=== PATIENT | female | born 2000 | race Caucasian/White ===

== ENCOUNTER → 2024-02-08 | Outpatient (CLI) | payer BC, SELFPAY ==
[2024-02-10 20:09] LABS: Chlamydia By Nucleic Acid AMP Negative (Negative); Gonococcus By Nucleic Acid AMP Negative (Negative)
== END | disposition home or self-care (01) ==
LOC: LABSPEC 16:44
PROVIDERS: Referring Provider Advanced Practice Midwife; Visit Provider Advanced Practice Midwife
DX: O99.210 Obesity complicating pregnancy, unspecified trimester (principal); E66.01 Morbid (severe) obesity due to excess calories; Z68.41 Body mass index [BMI] 40.0-44.9, adult; Z3A.00 Weeks of gestation of pregnancy not specified
CPT/HCPCS: 87086; 87491; 87591

== ENCOUNTER → 2024-03-16 | Outpatient (CLI) | payer BC, SELFPAY ==
[2024-03-16 16:59] LABS: Absolute Lymphocyte Count 1.47 X10^3/uL (0.83-4.51); Basophil# 0.02 X10^3/uL; Basophil% 0.2 % (0-1); Eosinophil# 0.08 X10^3/uL; Eosinophils% 0.9 % (0-5); Hematocrit 37.5 % (37-47); Lymphocyte # 1.47 X10^3/ul (0.83-4.51); Lymphocyte % 15.9 % (19-41); Mean Corp Hgb Conc 34.7 g/dL (32-36); Mean Corpuscular Hgb 28.2 pg (27.0-32.0); Mean Corpuscular Volume 81.3 fL (81-99); Mean Platelet Vol. 9.7 fl (6.2-12.0); Monocyte% 6.5 % (0-10); NRBC Flagged by Analyzer 0 % (0-5); Neutrophil # 7.04 X10^3/uL (2.7-7.7); Platelet Count 318 K/mm3 (150-450); RBC Distribution Width SD 38.5 fl (35.1-43.9); Red Blood Count 4.61 M/mm3 (4.2-5.4); White Blood Count 9.3 K/mm3 (4.4-11.0)
[2024-03-16 17:27] LABS: Hemoglobin A1c 4.8 % (3.8-5.6)
[2024-03-16 18:06] LABS: HIV - WCH Non-Reactive (Nonreactive); Hepatitis B Surface Antigen Non-Reactive (Nonreactive); Hepatitis C Antibody Non-Reactive (Nonreactive); Rubella IgG Reactive (Nonreactive); Syphilis Antibodies Non-reactive
== END | disposition home or self-care (01) ==
PROVIDERS: Referring Provider Advanced Practice Midwife; Visit Provider Advanced Practice Midwife
DX: O99.211 Obesity complicating pregnancy, first trimester (principal); E66.01 Morbid (severe) obesity due to excess calories; Z3A.00 Weeks of gestation of pregnancy not specified
CPT/HCPCS: 36415; 83036; 85025; 86703; 86762; 86780; 86803; 86850; 86900; 86901; 87340

== ENCOUNTER → 2024-06-30 | Outpatient (CLI) | payer BC, SELFPAY ==
[2024-06-30 12:43] LABS: Absolute Lymphocyte Count 1.07 X10^3/uL (0.83-4.51); Absolute Neutrophil Count 7.7 X10^3/uL (2.0-7.7); Basophil# 0.03 X10^3/uL; Basophil% 0.3 % (0-1); Eosinophil# 0.03 X10^3/uL; Eosinophils% 0.3 % (0-5); Hematocrit 38.8 % (37-47); Hemoglobin 13.4 g/dL (12.0-15.0); Lymphocyte # 1.07 X10^3/ul (0.83-4.51); Lymphocyte % 11.4 % (19-41); Mean Corp Hgb Conc 34.5 g/dL (32-36); Mean Corpuscular Hgb 28.7 pg (27.0-32.0); Mean Corpuscular Volume 83.1 fL (81-99); Monocyte% 5.3 % (0-10); NRBC Flagged by Analyzer 0 % (0-5); Neutrophil # 7.71 X10^3/uL (2.7-7.7); Neutrophil % 81.9 % (47-70); Platelet Count 300 K/mm3 (150-450); RBC Distribution Width CV 12.8 % (11.6-14.6); RBC Distribution Width SD 38.5 fl (35.1-43.9); Red Blood Count 4.67 M/mm3 (4.2-5.4); White Blood Count 9.4 K/mm3 (4.4-11.0)
[2024-06-30 13:05] LABS: Glucose Challenge Gest 1H 50g 113 mg/dL (70-140)
[2024-06-30 14:06] LABS: HIV - WCH Non-Reactive (Nonreactive); Syphilis Antibodies Non-reactive
== END | disposition home or self-care (01) ==
PROVIDERS: Referring Provider Obstetrics & Gynecology; Visit Provider Obstetrics & Gynecology
DX: O09.90 Supervision of high risk pregnancy, unspecified, unspecified trimester (principal); Z13.1 Encounter for screening for diabetes mellitus; Z3A.00 Weeks of gestation of pregnancy not specified
CPT/HCPCS: 36415; 82950; 85025; 86703; 86780

== ENCOUNTER 2024-08-17 14:28 | Emergency (ER) | payer BC, SELFPAY ==
[2024-08-17 14:29] VITALS: BP 136/75; PULSE 91; RESP 18; TEMP 36.8; O2SAT 99; BMI 41.9
[2024-08-17 17:07] VITALS: O2SAT 100
[2024-08-17 17:32] VITALS: O2SAT 97
--- NOTE | 2024-08-17 17:40 | RAD_ITS ---
STUDY: X-RAY CHEST REASON FOR EXAM: Female, 24 years old. Cough TECHNIQUE: PA and lateral views of the chest. COMPARISON: None. FINDINGS: The lungs are clear and expanded. There is no demonstrated pleural abnormality. Normal size heart. Normal mediastinum and donaldo. Normal visualized pulmonary arteries. Normal visualized aortic arch and descending thoracic aorta. Normal visualized thoracic spine. Normal visualized ribs, clavicles, and shoulders. There is no demonstrated abnormality of the visualized soft tissue structures of the upper abdomen. RAD/Chest PA and Lateral IMPRESSION: Normal x-ray examination of the chest. Electronically Signed: Sanjay Kitchen MD at 18:40 EST ,
--- NOTE | 2024-08-17 17:45 | EX.ED.DYSGE1 ---
HPI <DACIA Baer - Last Filed: 08/17/24 20:00> History of Present Illness Chief Complaint: Cough Narrative Narrative: Patient presenting today with cold symptoms she has had since Wednesday. She reports that she has had nasal congestion, productive cough, and a sore throat that is now resolved. Her has been sick with similar symptoms. She did go to the urgent care earlier this week and was given a Z-Mundo which has provided minimal relief of her symptoms. She reports that her cough worsened and she returned to the urgent care today, her heart rate there was around 140 bpm and they recommended that she come to the emergency department to have a chest x-ray obtained to rule out pneumonia. She denies feeling short of breath. She has had no fevers, chills, or chest pain. She does report bilateral lower rib pain with coughing, she does not have any pain at rest. She is currently 35 weeks and denies any complications. [facility] <DACIA Baer - Last Filed: 08/17/24 20:00> [facility] Medical History PCOS (polycystic ovarian syndrome) Home Medications ?Medication ?Instructions ?Recorded ?Last Taken ?Type cholecalciferol (vitamin D3) 25 25 mcg PO DAILY 02/04/24 Unknown History mcg (1,000 unit) capsule multivitamin no.47-iron fum 27 cap PO 02/04/24 Unknown History mg-folate no.1 1 mg-dha 300 mg capsule (PNV-DHA) ondansetron 4 mg disintegrating 4 mg PO Q8H PRN nausea and 06/30/24 Unknown Rx tablet vomiting #30 tabs Allergy/AdvReac Type Severity Reaction Status Date / Time No Known Allergies Allergy Verified 08/17/24 14:29 Family History Grandfather Heart disease maternal- pacemaker Surgical History [place] teeth extracted Social History adopted: No household members: spouse and other details: [id number] current occupational status: employed current occupation: [employer] current occupational exposures/hazards: No pets and animals: No history of recent travel: No sexually active: Yes Smoking Status: Former smoker quit date: 10/23/23 Tobacco: How many years used: 3 Electronic Cigarette Use: with nicotine alcohol intake: never substance use type: does not use well-balanced diet: daily or most days caffeine: No eating out: 1-3 times/week during the past year weight has: remained stable what type of physical activity do you participate in: none faustino/amish: None seatbelt use: always do you feel safe at home: Yes 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 <DACIA Baer - Last Filed: 08/17/24 20:00> ROS ED Constitutional Constitutional ED: Denies chills or fever(s) ENT ENT ED: Reports nasal congestion Cardiovascular Cardiovascular: Denies chest pain Respiratory/Chest Respiratory/Chest: Reports cough; Denies dyspnea, tachypnea or wheezing Gastrointestinal Gastrointestinal: Denies abdominal pain, nausea or vomiting Musculoskeletal Musculoskeletal: Denies arthralgias or myalgias Integumentary Denies rash Neurologic Neurologic: Denies weakness EXAM <DACIA Baer - Last Filed: 08/17/24 20:00> Physical Exam Const Vital Signs: 08/17/24 14:29 08/17/24 17:07 08/17/24 18:29 Temperature 98.2 F Temperature Source Oral Pulse Rate 91 103 H Respiratory Rate 18 16 Respiratory Effort Normal Respiratory Depth Normal Respiratory Pattern Normal Blood Pressure 136/75 H 130/78 H Blood Pressure Mean 95 95 Pulse Ox 99 99 Oxygen Delivery Method Room Air Room Air Room Air 08/17/24 19:08 Temperature 97.8 F Temperature Source Pulse Rate 85 Respiratory Rate 18 Respiratory Effort Respiratory Depth Respiratory Pattern Blood Pressure 128/74 H Blood Pressure Mean 92 Pulse Ox 99 Oxygen Delivery Method Positive well nourished, well developed and no apparent distress General Appearance ED: well developed HEENT Reports normocephalic and head/scalp atraumatic Mouth ED: Yes moist mucous membranes normal Throat: posterior oropharynx normal, tonsils normal and uvula midline Eyes PERRL and EOMs intact bilaterally Neck full ROM and supple General: Negative for meningeal signs Chest Wall inspection of chest normal Chest Narrative: Pain palpation to the bilateral lower anterior and lateral ribs Resp normal respiratory effort and clear to auscultation bilaterally Cardio regular rate and regular rhythm GI soft to palpation, non-tender, non-distended and no masses Back/Spine normal ROM and normal to inspection Extremity normal to inspection and full ROM Neuro oriented x3, CN's II-XII intact bilaterally, moves all extremities, no focal motor deficits and no sensory deficits noted Sensorium / Orientation: awake and alert Psych mental status grossly normal and thought process normal Skin no rashes or lesions noted and no wounds <Dr. Pascual Ayala DO - Last Filed: 08/17/24 22:46> Physical Exam Const Vital Signs: 08/17/24 14:29 08/17/24 17:07 08/17/24 18:29 Temperature 98.2 F Temperature Source Oral Pulse Rate 91 103 H Respiratory Rate 18 16 Respiratory Effort Normal Respiratory Depth Normal Respiratory Pattern Normal Blood Pressure 136/75 H 130/78 H Blood Pressure Mean 95 95 Pulse Ox 99 99 Oxygen Delivery Method Room Air Room Air Room Air 08/17/24 19:08 Temperature 97.8 F Temperature Source Pulse Rate 85 Respiratory Rate 18 Respiratory Effort Respiratory Depth Respiratory Pattern Blood Pressure 128/74 H Blood Pressure Mean 92 Pulse Ox 99 Oxygen Delivery Method [facility] <DACIA Baer - Last Filed: 08/17/24 20:00> [facility] Narrative Medical decision making narrative: Patient presenting today with cold symptoms that started on Wednesday. She has had nasal congestion and a cough. She did have a sore throat that is now resolved. She has been taking azithromycin over the last several days after being prescribed this at the urgent care earlier this week. She was tested for COVID and strep throat there which came back negative. She returned to today due to worsening cough and was recommended to come here to evaluate for pneumonia. She is nontoxic-appearing and in no acute distress. Her resting pulse is 91 bpm, her O2 saturation is 99% on room air. Chest x-ray negative for any infiltrate or acute cardiopulmonary abnormality. Patient was ambulated and did not become hypoxic, she became mildly tachycardic at 103 bpm but this did quickly resolve. I do suspect that she has a viral illness, especially given her is sick with similar symptoms. heart tones are 136 bpm. Supportive care measures discussed, recommended she follow-up with her PCP. She will be discharged home in stable condition. Radiography X-Ray: Read by ED Physician Diagnostic Testing: Clinical Impression(s) from Imaging Studies Chest X-Ray 08/17/24 17:40 IMPRESSION: Normal x-ray examination of the chest. Electronically Signed: Sanjay Kitchen MD at 18:40 EST , <Dr. Pascual Ayala, DO - Last Filed: 08/17/24 22:46> [facility] Narrative Medical decision making narrative: Patient presenting today with cold symptoms that started on Wednesday. She has had nasal congestion and a cough. She did have a sore throat that is now resolved. She has been taking azithromycin over the last several days after being prescribed this at the urgent care earlier this week. She was tested for COVID and strep throat there which came back negative. She returned to today due to worsening cough and was recommended to come here to evaluate for pneumonia. She is nontoxic-appearing and in no acute distress. Her resting pulse is 91 bpm, her O2 saturation is 99% on room air. Chest x-ray negative for any infiltrate or acute cardiopulmonary abnormality. Patient was ambulated and did not become hypoxic, she became mildly tachycardic at 103 bpm but this did quickly resolve. I do suspect that she has a viral illness, especially given her is sick with similar symptoms. heart tones are 136 bpm. Supportive care measures discussed, recommended she follow-up with her PCP. She will be discharged home in stable condition. attending note: I have personally performed a face to face assessment of the patient and have reviewed the URSULA note. I personally made/approved the management plan and take responsibility for the patient management. I performed a substantive portion of the visit including all aspects of the following. My lim findings include: Sent from urgent care for evaluation. G1, P1 35 weeks gestation nearly 36. Cough since Wednesday 4 days ago went to urgent care 2 days ago COVID and strep negative she is placed on a Z-Mundo. Will back today due to cough not improving reported heart rate in the 140s that was sent here. She denies any dyspnea. On arrival her heart rate was normal at 90. Exam alert nontoxic lungs clear gravid abdomen nontender. heart tone normal 136. Chest x-ray was negative. Negative COVID and strep 2 days ago. Discussed viral syndrome with the patient. Due to reported tachycardia at urgent care we ambulated the patient pulse ox there is no tachycardia no hypoxia. Discussed adjunct therapies humidifier to vapor rubs to help with cough symptoms. He is on day 3 of her Z-Mundo. Discussed with her she is to finish status however not likely to improve symptoms immediately. Symptoms should improve with time. She is reassured. All questions were answered. Radiography Diagnostic Testing: Clinical Impression(s) from Imaging Studies Chest X-Ray 08/17/24 17:40 IMPRESSION: Normal x-ray examination of the chest. Electronically Signed: Sanjay Kitchen MD at 18:40 EST , Discharge Plan Triage Chief Complaint: Cough ED Midlevel Provider: Earlene Skaggs ED Provider: Pascual Ayala Dx/Rx/DC Orders Clinical Impression: Viral URI with cough Instructions: ED URI, Viral, No Abx (Adult) Prescriptions: No Action PNV-DHA 27 mg iron-1 mg -300 mg capsule PO cholecalciferol (vitamin D3) 25 mcg (1,000 unit) capsule 25 mcg PO DAILY ondansetron 4 mg tablet,disintegrating 4 mg PO Q8H PRN (Reason: nausea and vomiting) Qty: 30 3RF Primary Care Provider: WEN DYKES DO Referrals: WEN DYKES DO [Other] Activity Restrictions/Additional Instructions: Follow-up with your PCP, return for worsening symptoms. Print Language: Chinese Disposition Disposition: Home, Self Care Discharge Date/Time: 08/17/24 19:10
[2024-08-17 18:29] VITALS: BP 130/78; PULSE 103; RESP 16; O2SAT 99
[2024-08-17 19:08] VITALS: BP 128/74; PULSE 85; RESP 18; TEMP 36.6; O2SAT 99
== END 2024-08-17 19:10 | disposition home or self-care (01) ==
PROVIDERS: Emergency Provider Emergency Medicine; Visit Provider Emergency Medicine
DX: O99.513 Diseases of the respiratory system complicating pregnancy, third trimester (principal); J06.9 Acute upper respiratory infection, unspecified; Z11.52 Encounter for screening for COVID-19; Z3A.35 35 weeks gestation of pregnancy; Z87.891 Personal history of nicotine dependence
CPT/HCPCS: 71046; 99282

== ENCOUNTER → 2024-08-18 | Outpatient (CLI) | payer BC, SELFPAY ==
--- NOTE | 2024-08-18 08:45 | US_ITS ---
STUDY: SECOND AND THIRD TRIMESTER OBSTETRICAL ULTRASOUND - LIMITED REASON FOR EXAM: Female, 24 years old. growth US PRIOR ULTRASOUND: None. TECHNIQUE: Transabdominal TECHNICAL QUALITY: Adequate. FINDINGS: There is a single intrauterine fetus. The fetus is in a cephalic presentation. There is demonstrated cardiac activity with a heart rate of 146 bpm. There is a normal amniotic fluid volume. The largest amniotic fluid pocket measures 6.1 cm. The amniotic fluid index (JAEL) is 10.8 cm. The placenta is posterior in location and is not low lying. There are Grade 2 placental changes. The cervix is obscured by overlying bowel gas and cannot be identified. . BIOMETRY: BPD: 96 mm: 39 weeks, 1 days HC: 337 mm: 38 weeks, 5 days AC: 316 mm: 35 weeks, 4 days FL: 65 mm: 33 weeks, 2 days CI: NA FL/AC: 20.4 FL/BPD: 67 HC/AC: 1.07 age by current US: 37 weeks, 1 days. NATALIA by current US: 1.16.25. Estimated weight: 2726 grams, +/- 409 grams, 44 %. Age by LMP: 35 weeks, 6 days. NATALIA by LMP: 1.25.25 US/OB Limited With Biometrics IMPRESSION: There is a single live intrauterine with a heart rate of 146 bpm. Electronically Signed: Marcos Watson MD at 20:16 EST ,
== END | disposition home or self-care (01) ==
LOC: US 08:44
PROVIDERS: Referring Provider Advanced Practice Midwife; Visit Provider Advanced Practice Midwife
DX: O99.213 Obesity complicating pregnancy, third trimester (principal); E66.01 Morbid (severe) obesity due to excess calories; Z3A.37 37 weeks gestation of pregnancy
CPT/HCPCS: 76816

== ENCOUNTER → 2024-08-25 | Outpatient (CLI) | payer BC, SELFPAY | END | disposition home or self-care (01) | LOC: LABSPEC 15:02 | PROVIDERS: Referring Provider Advanced Practice Midwife; Visit Provider Advanced Practice Midwife | DX: O09.90 Supervision of high risk pregnancy, unspecified, unspecified trimester (principal); Z3A.00 Weeks of gestation of pregnancy not specified | CPT/HCPCS: 87081 ==

== ENCOUNTER 2024-09-01 11:59 | Outpatient (CLI) | payer BC, SELFPAY ==
[2024-09-01] VITALS (7 sets, daily range): BP systolic 136–143; BP diastolic 63–78; PULSE 85–103; RESP 16; TEMP 36.4–36.6; O2SAT 97–98; BMI 42.9
--- NOTE | 2024-09-01 12:03 | US_ITS ---
INDICATION: decelerations EXAMINATION: Ultrasound US Biophysical Profile W/O Nonst TECHNIQUE: Transabdominal pelvic ultrasound was performed. COMPARISON: 08/18/2024 LMP: 12/11/2023 Beta-hCG: Unknown. Provided EGA: 37 weeks 6 days FINDINGS: INTRAUTERINE GESTATION(s): Single. HEART MOTION is 137 bpm. AMNIOTIC FLUID INDEX (JAEL): 9.2 cm BIOPHYSICAL PROFILE (BPP): 6/8 -- Breathin/2 -- Movement: 2/2. -- Tone: 2/2. --JAEL: 2/2. PRESENTATION: Cephalic PLACENTA: Anterior. There is no placenta previa or abruption. CERVIX: The cervix is not visualized. US/Biophysical Prof W/O Non Stres IMPRESSION: Single live intrauterine with biophysical profile score 6/8. Electronically Signed: Adelfo Lafleur MD at 16:12 EST ,
--- NOTE | 2024-09-01 17:00 | OB.TRI.HP_ITS ---
HPI - General General Date of Service: 09/01/24 HPI Narrative CAMERON AGUILLON, is a 24 F who presents at 37.6 presenting to for extended monitoring for variable on NST. active fetus. Maternal Data Information NATALIA Calculator Estimated Delivery Date Method Current WG Current Estimate 09/16/24 LMP (Certain) 37w 6d PFSH PFSH Medical History PCOS (polycystic ovarian syndrome) Home Medications ?Medication ?Instructions ?Recorded ?Last Taken ?Type multivitamin no.47-iron fum 27 1 cap PO DAILY 02/04/24 08/31/24 20:00 History mg-folate no.1 1 mg-dha 300 mg capsule (PNV-DHA) ondansetron 4 mg disintegrating 4 mg PO Q8H PRN nausea and 06/30/24 09/01/24 10:45 Rx tablet vomiting #30 tabs Allergy/AdvReac Type Severity Reaction Status Date / Time No Known Allergies Allergy Verified 09/01/24 12:43 Family History Grandfather Heart disease maternal- pacemaker Surgical History [place] teeth extracted Social History adopted: No household members: spouse and other details: [id number] current occupational status: employed current occupation: [employer] current occupational exposures/hazards: No pets and animals: No history of recent travel: No sexually active: Yes Smoking Status: Former smoker quit date: 10/23/23 Tobacco: How many years used: 3 Electronic Cigarette Use: with nicotine alcohol intake: never substance use type: does not use well-balanced diet: daily or most days caffeine: No eating out: 1-3 times/week during the past year weight has: remained stable what type of physical activity do you participate in: none faustino/yarsanism: None seatbelt use: always do you feel safe at home: Yes 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 Elective abortions Hx Para 0 Spontaneous abortions 2 Hx # Term Pregnancies Ectopic pregnancies Hx # Pregnancies Multiple births # of living children 0 Visit Details Expected Delivery Route/Plan Labor Preferences- CB/BF classes: [] labor support person: [] labor intervention preferences: [] pain management options preferred: [] cut cord/dad catch: [] : [] PP control planned: [] discussed possible routes of delivery and associated risks: [] special requests: [] Plans Covid status: [] Flu vaccine: declin Tdap vaccine: given Rhogam:na LARC form signed: declined movement and labor precautions reviewed. Problem list reviewed and updated with the most current plan of care details and appropriate orders placed. Relevant counseling for the gestational age provided. Continue routine care and follow up unless otherwise noted in visit notes/problem list details OB Flowsheet Initial Weight: 253 lb Date -?-?-?-?-?-?-?--?-?-?-?-?- EGA Weight BP Urine Prot -?-?-?-?-?-?-?-?-?-?-?-?- Glucose FHR FuHt Pres Dilation -?-?-?-?-?-?-?-?-?-?-?-?- Effaced St Visit Note 02/08/24 -?-?-?-?-?-?-?-?-?-?-?-?- 8w 3d 253 lb (+0 oz) 121/72 -?-?-?-?-?-?-?-?-?-?-?-?- 175 -?-?-?-?-?-?-?-?-?-?-?-?- KW- CRL cons wit h dates. NIPT with gender at next appt. 03/10/24 -?-?-?-?-?-?-?-?-?-?-?-?- 12w 6d 247 lb 6 oz (-5 lb 10 oz) 122/69 Negative -?-?-?-?-?-?-?-?-?-?-?-?- Negative 140 -?-?-?-?-?-?-?-?-?-?-?-?- JV- hand held de vice used to reassure patient. NIPT ordered. JV- hand held device used to reassure patient. NIPT ordered. pt on metformin for PCOS. She thinks she also has had insulin resistance in the past. She has been on this since september so A1c will likely not be accurate to know if has pre- existing DM. she will check glucose levels now and if decides to stop it, will check levels fasting and 2 hr pp. 04/07/24 -?-?-?-?-?-?-?-?-?-?-?-?- 16w 6d 243 lb (-10 lb) 126/84 Negative -?-?-?-?-?-?-?-?-?-?-?-?- Negative 156 -?-?-?-?-?-?-?-?-?-?-?-?- JV- fasting danilo ls in 80's ,2 hr pp 110's. plan to stop metformin the week of her glucola and if normal glucola, stop metformin. JV- no lof, vaginal bleeding, or dec fm. nst reactive. GBS collected. JV- glucose log is normal. p t will stop metformin and do glucola at 26-28 weeks. 05/05/24 -?-?-?-?-?-?-?-?-?-?-?-?- 20w 6d 243 lb (-10 lb) 113/76 Negative -?-?-?-?-?-?-?-?-?-?-?-?- Negative 150 -?-?-?-?-?-?-?-?-?-?-?-?- SM- no vb lof go o dfm nor euglar ctx 06/02/24 -?-?-?-?-?-?-?-?-?-?-?-?- 24w 6d 243 lb 2 oz (-9 lb 14 oz) 133/83 Negative -?-?-?-?-?-?-?-?-?-?-?-?- Negative 145 25 -?-?-?-?-?-?-?-?-?-?-?-?- KW- no vb/lof/ct x. good fm. LARC discussed and unsure. BS reviewed and WNL 06/30/24 -?-?-?-?-?-?-?-?-?-?-?-?- 28w 6d 243 lb 8 oz (-9 lb 8 oz) 132/80 Negative -?-?-?-?-?-?-?-?-?-?-?-?- Negative 138 30 -?-?-?-?-?-?-?-?-?-?-?-?- JV- tdap done to day. no lof, vaginal bleeding, or dec fm. has nausea again and asking for zofran refill. 3rd tri labs today 07/14/24 -?-?-?-?-?-?-?-?-?-?-?-?- 30w 6d 246 lb 8 oz (-6 lb 8 oz) 124/78 Negative -?-?-?-?-?-?-?-?-?-?-?-?- Negative 157 31 -?-?-?-?-?-?-?-?-?-?-?-?- LC- no vb/ctx/lo f. good fm. no concerns 07/28/24 -?-?-?-?-?-?-?-?-?-?-?-?- 32w 6d 250 lb (-3 lb) 131/82 -?-?-?-?-?-?-?-?-?-?-?-?- 145 33 -?-?-?-?-?-?-?-?-?-?-?-?- KW- no vb/lof/ct x. good fm. Growth US ordered-scheduled for NSTs at 34 weeks. 08/11/24 -?-?-?-?-?-?-?-?-?-?-?-?- 34w 6d 251 lb 2 oz (-1 lb 14 oz) 118/81 Negative -?-?-?-?-?-?-?-?-?-?-?-?- Negative 140 34 -?-?-?-?-?-?-?-?-?-?-?-?- SM- no vb lof go od fm no reuglar ctx 08/18/24 -?-?-?-?-?-?-?-?-?-?-?-?- 35w 6d 252 lb (-16 oz) 136/82 -?-?-?-?-?-?-?-?-?-?-?-?- 130 35 -?-?-?-?-?--?-?-?-?-?-?-?- SM- no vb lof go od fm no reuglar ctx, being treated for a cold 08/25/24 -?-?-?-?-?-?-?-?-?-?-?-?- 36w 6d 256 lb 4 oz (+3 lb 4 oz) 129/78 Negative -?-?-?-?-?-?-?-?-?-?-?-?- Negative 135 37 Cephalic 1 .5 -?-?-?-?-?-?-?-?-?-?-?-?- 70 -2 KW- no vb/ lof/ctx. good fm. NST today. GBS today. 09/01/24 -?-?-?-?-?-?-?-?-?-?-?-?- 37w 6d 259 lb 6 oz (+6 lb 6 oz) 127/73 Negative -?-?-?-?-?-?-?-?-?-?-?-?- Negative 145 Cephalic 1.5 -?-?-?-?-?-?-?-?-?-?-?-?- 70 -2 JV- 2 vari able decels on NST today. sending to L&D for a bpp. NST FHR Rate Baby A Baseline: 140 Variability:: Moderate Accelerations:: 15 x 15 Decelerations:: None NST Reactive:: Yes FHR Category:: Category I Uterine Activity:: none Assessment & Plan (1) Variable deceleration: COMMENT: 01/28 BPP off for breathing. normal JAEL. active fetus. reactive NST. PLAN: Patient presents for triage evaluation secondary to variable in office. reassuring NST and BPP 04/01. FHT: Moderate variability reactive no decelerations category I tracing [place]: Contractions Assessment and plan: Reactive NST, reassuring maternal and status patient discharged to home to follow-up in office. See problem list details for additional plan information. Charges/Coding Procedures Urinary/Genital [id number]: [id number] non-stress test Interp
--- NOTE | 2024-09-01 17:00 | OB.TRI.NOTE ---
HPI - General General Date of Service: 09/01/24 HPI Narrative CAMERON AGUILLON, is a 24 F who presents at 37.6 presenting to for extended monitoring for variable on NST. active fetus. Maternal Data Information NATALIA Calculator Estimated Delivery Date Method Current WG Current Estimate 09/16/24 LMP (Certain) 37w 6d PFSH PFSH Medical History PCOS (polycystic ovarian syndrome) Home Medications ?Medication ?Instructions ?Recorded ?Last Taken ?Type multivitamin no.47-iron fum 27 1 cap PO DAILY 02/04/24 08/31/24 20:00 History mg-folate no.1 1 mg-dha 300 mg capsule (PNV-DHA) ondansetron 4 mg disintegrating 4 mg PO Q8H PRN nausea and 06/30/24 09/01/24 10:45 Rx tablet vomiting #30 tabs Allergy/AdvReac Type Severity Reaction Status Date / Time No Known Allergies Allergy Verified 09/01/24 12:43 Family History Grandfather Heart disease maternal- pacemaker Surgical History [place] teeth extracted Social History adopted: No household members: spouse and other details: [id number] current occupational status: employed current occupation: [employer] current occupational exposures/hazards: No pets and animals: No history of recent travel: No sexually active: Yes Smoking Status: Former smoker quit date: 10/23/23 Tobacco: How many years used: 3 Electronic Cigarette Use: with nicotine alcohol intake: never substance use type: does not use well-balanced diet: daily or most days caffeine: No eating out: 1-3 times/week during the past year weight has: remained stable what type of physical activity do you participate in: none faustino/roman catholic: None seatbelt use: always do you feel safe at home: Yes 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 Elective abortions Hx Para 0 Spontaneous abortions 2 Hx # Term Pregnancies Ectopic pregnancies Hx # Pregnancies Multiple births # of living children 0 Visit Details Expected Delivery Route/Plan Labor Preferences- CB/BF classes: [] labor support person: [] labor intervention preferences: [] pain management options preferred: [] cut cord/dad catch: [] : [] PP control planned: [] discussed possible routes of delivery and associated risks: [] special requests: [] Plans Covid status: [] Flu vaccine: declin Tdap vaccine: given Rhogam:na LARC form signed: declined movement and labor precautions reviewed. Problem list reviewed and updated with the most current plan of care details and appropriate orders placed. Relevant counseling for the gestational age provided. Continue routine care and follow up unless otherwise noted in visit notes/problem list details OB Flowsheet Initial Weight: 253 lb Date <del>?</del> EGA Weight BP Urine Prot <del>?</del> Glucose FHR FuHt Pres Dilation <del>?</del> Effaced St Visit Note 02/08/24 <del>?</del> 8w 3d 253 lb (+0 oz) 121/72 <del>?</del> 175 <del>?</del> KW- CRL cons with dates. NIPT with gender at next appt. 03/10/24 <del>?</del> 12w 6d 247 lb 6 oz (-5 lb 10 oz) 122/69 Negative <del>?</del> Negative 140 <del>?</del> JV- hand held device used to reassure patient. NIPT ordered. JV- hand held device used to reassure patient. NIPT ordered. pt on metformin for PCOS. She thinks she also has had insulin resistance in the past. She has been on this since september so A1c will likely not be accurate to know if has pre-existing DM. she will check glucose levels now and if decides to stop it, will check levels fasting and 2 hr pp. 04/07/24 <del>?</del> 16w 6d 243 lb (-10 lb) 126/84 Negative <del>?</del> Negative 156 <del>?</del> JV- fasting levels in 80's ,2 hr pp 110's. plan to stop metformin the week of her glucola and if normal glucola, stop metformin. JV- no lof, vaginal bleeding, or dec fm. nst reactive. GBS collected. JV- glucose log is normal. pt will stop metformin and do glucola at 26-28 weeks. 05/05/24 <del>?</del> 20w 6d 243 lb (-10 lb) 113/76 Negative <del>?</del> Negative 150 <del>?</del> SM- no vb lof goo dfm nor euglar ctx 06/02/24 <del>?</del> 24w 6d 243 lb 2 oz (-9 lb 14 oz) 133/83 Negative <del>?</del> Negative 145 25 <del>?</del> KW- no vb/lof/ctx. good fm. LARC discussed and unsure. BS reviewed and WNL 06/30/24 <del>?</del> 28w 6d 243 lb 8 oz (-9 lb 8 oz) 132/80 Negative <del>?</del> Negative 138 30 <del>?</del> JV- tdap done today. no lof, vaginal bleeding, or dec fm. has nausea again and asking for zofran refill. 3rd tri labs today 07/14/24 <del>?</del> 30w 6d 246 lb 8 oz (-6 lb 8 oz) 124/78 Negative <del>?</del> Negative 157 31 <del>?</del> LC- no vb/ctx/lof. good fm. no concerns 07/28/24 <del>?</del> 32w 6d 250 lb (-3 lb) 131/82 <del>?</del> 145 33 <del>?</del> KW- no vb/lof/ctx. good fm. Growth US ordered-scheduled for NSTs at 34 weeks. 08/11/24 <del>?</del> 34w 6d 251 lb 2 oz (-1 lb 14 oz) 118/81 Negative <del>?</del> Negative 140 34 <del>?</del> SM- no vb lof good fm no reuglar ctx 08/18/24 <del>?</del> 35w 6d 252 lb (-16 oz) 136/82 <del>?</del> 130 35 <del>?</del> SM- no vb lof good fm no reuglar ctx, being treated for a cold 08/25/24 <del>?</del> 36w 6d 256 lb 4 oz (+3 lb 4 oz) 129/78 Negative <del>?</del> Negative 135 37 Cephalic 1.5 <del>?</del> 70 -2 KW- no vb/lof/ctx. good fm. NST today. GBS today. 09/01/24 <del>?</del> 37w 6d 259 lb 6 oz (+6 lb 6 oz) 127/73 Negative <del>?</del> Negative 145 Cephalic 1.5 <del>?</del> 70 -2 JV- 2 variable decels on NST today. sending to L&D for a bpp. NST FHR Rate Baby A Baseline: 140 Variability:: Moderate Accelerations:: 15 x 15 Decelerations:: None NST Reactive:: Yes FHR Category:: Category I Uterine Activity:: none Assessment & Plan (1) Variable deceleration: COMMENT: 01/28 BPP off for breathing. normal JAEL. active fetus. reactive NST. PLAN: Patient presents for triage evaluation secondary to variable in office. reassuring NST and BPP 04/01. FHT: Moderate variability reactive no decelerations category I tracing [place]: Contractions Assessment and plan: Reactive NST, reassuring maternal and status patient discharged to home to follow-up in office. See problem list details for additional plan information. Charges/Coding Procedures Urinary/Genital [id number]: 69701-44 non-stress test Interp
== END 2024-09-01 16:41 | disposition home or self-care (01) ==
LOC: WPOUT 12:02 → WP 12:02
PROVIDERS: Referring Provider Registered Nurse; Visit Provider Registered Nurse
DX: O36.8330 Maternal care for abnormalities of the fetal heart rate or rhythm, third trimester, not applicable or unspecified (principal); Z3A.37 37 weeks gestation of pregnancy; Z87.891 Personal history of nicotine dependence
CPT/HCPCS: 59025; 59050; 76819; 99221; G0378

== ENCOUNTER 2024-09-03 01:25 | Outpatient (CLI) | payer BC, SELFPAY ==
[2024-09-03 01:49] VITALS: PULSE 78; O2SAT 98
[2024-09-03 01:50] VITALS: BP 136/79; PULSE 78; RESP 18; TEMP 36.5
[2024-09-03 01:56] VITALS: BMI 43.7
[2024-09-03 02:30] LABS: ROM Internal Control Test YES-OK TO RESULT pt. (Internal QC); ROM Patient Test Negative (Negative)
[2024-09-03 02:31] LABS: Record Kit Lot#, ROM+ K2451
[2024-09-03 02:42] VITALS: BP 126/68; PULSE 84
--- NOTE | 2024-09-08 12:55 | OB.TRI.HP_ITS ---
HPI - General HPI Narrative CAMERON AGUILLON, is a 24 F who presents at 38.1 with questionable LOF and ctx. good fm. declines vb Maternal Data Information NATALIA Calculator Estimated Delivery Date Method Current WG Current Estimate 09/16/24 LMP (Certain) 38w 6d PFSH PFSH Medical History PCOS (polycystic ovarian syndrome) Home Medications ?Medication ?Instructions ?Recorded ?Last Taken ?Type multivitamin no.47-iron fum 27 1 cap PO DAILY 02/04/24 09/02/24 History mg-folate no.1 1 mg-dha 300 mg capsule (PNV-DHA) ondansetron 4 mg disintegrating 4 mg PO Q8H PRN nausea and 06/30/24 09/02/24 Rx tablet vomiting #30 tabs Allergy/AdvReac Type Severity Reaction Status Date / Time No Known Allergies Allergy Verified 09/03/24 01:57 Family History Grandfather Heart disease maternal- pacemaker Surgical History [place] teeth extracted Social History adopted: No household members: spouse and other details: [id number] current occupational status: employed current occupation: [employer] current occupational exposures/hazards: No pets and animals: No history of recent travel: No sexually active: Yes Smoking Status: Former smoker quit date: 10/23/23 Tobacco: How many years used: 3 Electronic Cigarette Use: with nicotine alcohol intake: never substance use type: does not use well-balanced diet: daily or most days caffeine: No eating out: 1-3 times/week during the past year weight has: remained stable what type of physical activity do you participate in: none faustino/hinduism: None seatbelt use: always do you feel safe at home: Yes 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 History 3 Elective abortions Hx Para 0 Spontaneous abortions 2 Hx # Term Pregnancies Ectopic pregnancies Hx # Pregnancies Multiple births # of living children 0 Visit Details Expected Delivery Route/Plan Labor Preferences- CB/BF classes: [] labor support person: [] labor intervention preferences: [] pain management options preferred: [] cut cord/dad catch: [] : [] PP control planned: [] discussed possible routes of delivery and associated risks: [] special requests: [] Plans Covid status: [] Flu vaccine: declin Tdap vaccine: given Rhogam:na LARC form signed: declined movement and labor precautions reviewed. Problem list reviewed and updated with the most current plan of care details and appropriate orders placed. Relevant counseling for the gestational age provided. Continue routine care and follow up unless otherwise noted in visit notes/problem list details OB Flowsheet Initial Weight: 253 lb Date -?-?-?-?-?-?-?-?-?-?-?-?- EGA Weight BP Urine Prot -?-?-?-?-?-?-?-?-?-?-?-?- Glucose FHR FuHt Pres Dilation -?-?-?-?-?-?-?-?-?-?-?-?- Effaced St Visit Note 02/08/24 -?-?-?-?-?-?-?-?-?-?-?-?- 8w 3d 253 lb (+0 oz) 121/72 -?-?-?-?-?-?-?-?-?-?-?-?- 175 -?-?-?-?-?-?-?-?-?-?-?-?- KW- CRL cons wit h dates. NIPT with gender at next appt. 03/10/24 -?-?-?-?-?-?-?-?-?-?-?-?- 12w 6d 247 lb 6 oz (-5 lb 10 oz) 122/69 Negative -?-?-?-?-?-?-?-?-?-?-?-?- Negative 140 -?-?-?-?-?-?-?-?-?-?-?-?- JV- hand held de vice used to reassure patient. NIPT ordered. JV- hand held device used to reassure patient. NIPT ordered. pt on metformin for PCOS. She thinks she also has had insulin resistance in the past. She has been on this since september so A1c will likely not be accurate to know if has pre- existing DM. she will check glucose levels now and if decides to stop it, will check levels fasting and 2 hr pp. 04/07/24 -?-?-?-?-?-?-?-?-?-?-?-?- 16w 6d 243 lb (-10 lb) 126/84 Negative -?-?-?-?-?-?-?-?-?-?-?-?- Negative 156 -?-?-?-?-?-?-?-?-?-?-?-?- JV- fasting danilo ls in 80's ,2 hr pp 110's. plan to stop metformin the week of her glucola and if normal glucola, stop metformin. JV- no lof, vaginal bleeding, or dec fm. nst reactive. GBS collected. JV- glucose log is normal. p t will stop metformin and do glucola at 26-28 weeks. 05/05/24 -?-?-?-?-?-?-?-?-?-?-?-?- 20w 6d 243 lb (-10 lb) 113/76 Negative -?-?-?-?-?-?-?-?-?-?-?-?- Negative 150 -?-?-?-?-?-?-?-?-?-?-?-?- SM- no vb lof go o dfm nor euglar ctx 06/02/24 -?-?-?-?-?-?-?-?-?-?-?-?- 24w 6d 243 lb 2 oz (-9 lb 14 oz) 133/83 Negative -?-?-?-?-?-?-?-?-?-?-?-?- Negative 145 25 -?-?-?-?-?-?-?-?-?-?-?-?- KW- no vb/lof/ct x. good fm. LARC discussed and unsure. BS reviewed and WNL 06/30/24 -?-?-?-?-?-?-?-?-?-?-?-?- 28w 6d 243 lb 8 oz (-9 lb 8 oz) 132/80 Negative -?-?-?-?-?-?-?-?-?-?-?-?- Negative 138 30 -?-?-?-?-?-?-?-?-?-?-?-?- JV- tdap done to day. no lof, vaginal bleeding, or dec fm. has nausea again and asking for zofran refill. 3rd tri labs today 07/14/24 -?-?-?-?-?-?-?-?-?-?-?-?- 30w 6d 246 lb 8 oz (-6 lb 8 oz) 124/78 Negative -?-?-?-?-?-?-?-?-?-?-?-?- Negative 157 31 -?-?-?-?-?-?-?-?-?-?-?-?- LC- no vb/ctx/lo f. good fm. no concerns 07/28/24 -?-?-?-?-?-?-?-?-?-?-?-?- 32w 6d 250 lb (-3 lb) 131/82 -?-?-?-?-?-?-?-?-?-?-?-?- 145 33 -?-?-?-?-?-?-?-?-?-?-?-?- KW- no vb/lof/ct x. good fm. Growth US ordered-scheduled for NSTs at 34 weeks. 08/11/24 -?-?-?-?-?-?-?-?-?-?-?-?- 34w 6d 251 lb 2 oz (-1 lb 14 oz) 118/81 Negative -?-?-?-?-?-?-?-?-?-?-?-?- Negative 140 34 -?-?-?-?-?-?-?-?-?-?-?-?- SM- no vb lof go od fm no reuglar ctx 08/18/24 -?-?-?-?-?-?-?-?-?-?-?-?- 35w 6d 252 lb (-16 oz) 136/82 -?-?-?-?-?-?-?-?-?-?-?-?- 130 35 -?-?-?-?-?-?-?-?-?-?-?-?- SM- no vb lof go od fm no reuglar ctx, being treated for a cold 08/25/24 -?--?-?-?-?-?-?-?-?-?-?-?- 36w 6d 256 lb 4 oz (+3 lb 4 oz) 129/78 Negative -?-?-?-?-?-?-?-?-?-?-?-?- Negative 135 37 Cephalic 1 .5 -?-?-?-?-?-?-?-?-?-?-?-?- 70 -2 KW- no vb/ lof/ctx. good fm. NST today. GBS today. 09/01/24 -?-?-?-?-?-?-?-?-?-?-?-?- 37w 6d 259 lb 6 oz (+6 lb 6 oz) 127/73 Negative -?-?-?-?-?-?-?-?-?-?-?-?- Negative 145 Cephalic 1.5 -?-?-?-?-?-?-?-?-?-?-?-?- 70 -2 JV- 2 vari able decels on NST today. sending to L&D for a bpp. NST FHR Rate Baby A Baseline: 115 Variability:: Moderate Accelerations:: 15 x 15 Decelerations:: None NST Reactive:: Yes FHR Category:: Category I Uterine Activity:: irreg Assessment & Plan (1) False labor: COMMENT: ROM plus negative. no change in cervical exam. d/c home PLAN: Plan Patient presents for triage evaluation secondary to labor rule out and rom rule out. rom plus negative. no change in cervical exams. FHT: Moderate variability reactive no decelerations category I tracing [place]: irreg Contractions Assessment and plan: Reactive NST, reassuring maternal and status patient discharged to home to follow-up in office/prn. See problem list details for additional plan information. Charges/Coding Multi Select Codes Urinary/Genital Urinary/Genital CPT Codes: 42848-09 non-stress test Interp
--- NOTE | 2024-09-08 12:55 | OB.TRI.NOTE ---
HPI - General HPI Narrative CAMERON AGUILLON, is a 24 F who presents at 38.1 with questionable LOF and ctx. good fm. declines vb Maternal Data Information NATALIA Calculator Estimated Delivery Date Method Current WG Current Estimate 09/16/24 LMP (Certain) 38w 6d PFSH PFSH Medical History PCOS (polycystic ovarian syndrome) Home Medications ?Medication ?Instructions ?Recorded ?Last Taken ?Type multivitamin no.47-iron fum 27 1 cap PO DAILY 02/04/24 09/02/24 History mg-folate no.1 1 mg-dha 300 mg capsule (PNV-DHA) ondansetron 4 mg disintegrating 4 mg PO Q8H PRN nausea and 06/30/24 09/02/24 Rx tablet vomiting #30 tabs Allergy/AdvReac Type Severity Reaction Status Date / Time No Known Allergies Allergy Verified 09/03/24 01:57 Family History Grandfather Heart disease maternal- pacemaker Surgical History [place] teeth extracted Social History adopted: No household members: spouse and other details: [id number] current occupational status: employed current occupation: [employer] current occupational exposures/hazards: No pets and animals: No history of recent travel: No sexually active: Yes Smoking Status: Former smoker quit date: 10/23/23 Tobacco: How many years used: 3 Electronic Cigarette Use: with nicotine alcohol intake: never substance use type: does not use well-balanced diet: daily or most days caffeine: No eating out: 1-3 times/week during the past year weight has: remained stable what type of physical activity do you participate in: none faustino/anabaptism: None seatbelt use: always do you feel safe at home: Yes 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 Elective abortions Hx Para 0 Spontaneous abortions 2 Hx # Term Pregnancies Ectopic pregnancies Hx # Pregnancies Multiple births # of living children 0 Visit Details Expected Delivery Route/Plan Labor Preferences- CB/BF classes: [] labor support person: [] labor intervention preferences: [] pain management options preferred: [] cut cord/dad catch: [] : [] PP control planned: [] discussed possible routes of delivery and associated risks: [] special requests: [] Plans Covid status: [] Flu vaccine: declin Tdap vaccine: given Rhogam:na LARC form signed: declined movement and labor precautions reviewed. Problem list reviewed and updated with the most current plan of care details and appropriate orders placed. Relevant counseling for the gestational age provided. Continue routine care and follow up unless otherwise noted in visit notes/problem list details OB Flowsheet Initial Weight: 253 lb Date <del>?</del> EGA Weight BP Urine Prot <del>?</del> Glucose FHR FuHt Pres Dilation <del>?</del> Effaced St Visit Note 02/08/24 <del>?</del> 8w 3d 253 lb (+0 oz) 121/72 <del>?</del> 175 <del>?</del> KW- CRL cons with dates. NIPT with gender at next appt. 03/10/24 <del>?</del> 12w 6d 247 lb 6 oz (-5 lb 10 oz) 122/69 Negative <del>?</del> Negative 140 <del>?</del> JV- hand held device used to reassure patient. NIPT ordered. JV- hand held device used to reassure patient. NIPT ordered. pt on metformin for PCOS. She thinks she also has had insulin resistance in the past. She has been on this since september so A1c will likely not be accurate to know if has pre-existing DM. she will check glucose levels now and if decides to stop it, will check levels fasting and 2 hr pp. 04/07/24 <del>?</del> 16w 6d 243 lb (-10 lb) 126/84 Negative <del>?</del> Negative 156 <del>?</del> JV- fasting levels in 80's ,2 hr pp 110's. plan to stop metformin the week of her glucola and if normal glucola, stop metformin. JV- no lof, vaginal bleeding, or dec fm. nst reactive. GBS collected. JV- glucose log is normal. pt will stop metformin and do glucola at 26-28 weeks. 05/05/24 <del>?</del> 20w 6d 243 lb (-10 lb) 113/76 Negative <del>?</del> Negative 150 <del>?</del> SM- no vb lof goo dfm nor euglar ctx 06/02/24 <del>?</del> 24w 6d 243 lb 2 oz (-9 lb 14 oz) 133/83 Negative <del>?</del> Negative 145 25 <del>?</del> KW- no vb/lof/ctx. good fm. LARC discussed and unsure. BS reviewed and WNL 06/30/24 <del>?</del> 28w 6d 243 lb 8 oz (-9 lb 8 oz) 132/80 Negative <del>?</del> Negative 138 30 <del>?</del> JV- tdap done today. no lof, vaginal bleeding, or dec fm. has nausea again and asking for zofran refill. 3rd tri labs today 07/14/24 <del>?</del> 30w 6d 246 lb 8 oz (-6 lb 8 oz) 124/78 Negative <del>?</del> Negative 157 31 <del>?</del> LC- no vb/ctx/lof. good fm. no concerns 07/28/24 <del>?</del> 32w 6d 250 lb (-3 lb) 131/82 <del>?</del> 145 33 <del>?</del> KW- no vb/lof/ctx. good fm. Growth US ordered-scheduled for NSTs at 34 weeks. 08/11/24 <del>?</del> 34w 6d 251 lb 2 oz (-1 lb 14 oz) 118/81 Negative <del>?</del> Negative 140 34 <del>?</del> SM- no vb lof good fm no reuglar ctx 08/18/24 <del>?</del> 35w 6d 252 lb (-16 oz) 136/82 <del>?</del> 130 35 <del>?</del> SM- no vb lof good fm no reuglar ctx, being treated for a cold 08/25/24 <del>?</del> 36w 6d 256 lb 4 oz (+3 lb 4 oz) 129/78 Negative <del>?</del> Negative 135 37 Cephalic 1.5 <del>?</del> 70 -2 KW- no vb/lof/ctx. good fm. NST today. GBS today. 09/01/24 <del>?</del> 37w 6d 259 lb 6 oz (+6 lb 6 oz) 127/73 Negative <del>?</del> Negative 145 Cephalic 1.5 <del>?</del> 70 -2 JV- 2 variable decels on NST today. sending to L&D for a bpp. NST FHR Rate Baby A Baseline: 115 Variability:: Moderate Accelerations:: 15 x 15 Decelerations:: None NST Reactive:: Yes FHR Category:: Category I Uterine Activity:: irreg Assessment & Plan (1) False labor: COMMENT: ROM plus negative. no change in cervical exam. d/c home PLAN: Plan Patient presents for triage evaluation secondary to labor rule out and rom rule out. rom plus negative. no change in cervical exams. FHT: Moderate variability reactive no decelerations category I tracing [place]: irreg Contractions Assessment and plan: Reactive NST, reassuring maternal and status patient discharged to home to follow-up in office/prn. See problem list details for additional plan information. Charges/Coding Multi Select Codes Urinary/Genital Urinary/Genital CPT Codes: 86645-89 non-stress test Interp
== END 2024-09-03 03:00 | disposition home or self-care (01) ==
LOC: WPOUT 01:32 → WP 01:33
PROVIDERS: Visit Provider Registered Nurse
DX: O47.1 False labor at or after 37 completed weeks of gestation (principal); Z3A.38 38 weeks gestation of pregnancy; Z87.891 Personal history of nicotine dependence
CPT/HCPCS: 59025; 59050; 84112; 99221; G0378

== ENCOUNTER 2024-09-08 17:11 | Inpatient (IN) | payer BC, SELFPAY ==
[2024-09-08] VITALS (8 sets, daily range): BP systolic 133–146; BP diastolic 75–84; PULSE 77–102; RESP 16–20; TEMP 36.4–36.9; O2SAT 97–98; BMI 43.0
--- NOTE | 2024-09-08 15:02 | US_ITS ---
EXAM: US BIOPHYSICAL PROFILE WITHOUT NON-STRESS TESTING CLINICAL INDICATION: variable on NST TECHNIQUE: Real-time ultrasound of the maternal pelvis for biophysical profile evaluation with image documentation. COMPARISON: September 01, 2024, BPP was 68 without visible breathing motion. FINDINGS: AMNIOTIC FLUID: 4 quadrant JAEL 7.1 cm, largest fluid pocket 2.7 cm. HEART RATE: 145 bpm. POSITION: Cephalic. PLACENTA: Posterior, grade 3, not low- lying. No evidence of abruption. BREATHING MOVEMENTS: Present. Score 2/2. GROSS BODY MOVEMENTS: Present. Score 2/2. TONE: Present. Score 2/2. QUALITATIVE AMNIOTIC FLUID VOLUME: Within normal limits. Score 2/2. US/Biophysical Prof W/O Non Stres IMPRESSION: Normal biophysical profile ultrasound. Score 8/8. Cephalic presentation. Electronically Signed: Laquita Melgar MD at 20:03 EST ,
--- NOTE | 2024-09-08 17:02 | HP.PCM.OB_ITS ---
HPI - General HPI Narrative CAMERON AGUILLON, is a 24 y/o @ 38 weeks 6 days who presents to L&D for evaluation due to decelerations in the office. On L&D the monitor showed 2 more variable decelerations. BPP was 8/8. The decision was made to induce labor. She denies bleeding, leaking fluid, or decreased movement. Maternal Data Information NATALIA Calculator Estimated Delivery Date Method Current WG Current Estimate 09/16/24 LMP (Certain) 38w 6d PFSH PFSH Medical History PCOS (polycystic ovarian syndrome) Home Medications ?Medication ?Instructions ?Recorded ?Last Taken ?Type multivitamin no.47-iron fum 27 1 cap PO DAILY 02/04/24 09/02/24 History mg-folate no.1 1 mg-dha 300 mg capsule (PNV-DHA) ondansetron 4 mg disintegrating 4 mg PO Q8H PRN nausea and 06/30/24 09/02/24 Rx tablet vomiting #30 tabs Allergy/AdvReac Type Severity Reaction Status Date / Time No Known Allergies Allergy Verified 09/08/24 15:02 Family History Grandfather Heart disease maternal- pacemaker Surgical History [place] teeth extracted Social History adopted: No household members: spouse and other details: [id number] current occupational status: employed current occupation: [employer] current occupational exposures/hazards: No pets and animals: No history of recent travel: No sexually active: Yes Smoking Status: Former smoker quit date: 10/23/23 Tobacco: How many years used: 3 Electronic Cigarette Use: with nicotine alcohol intake: never substance use type: does not use well-balanced diet: daily or most days caffeine: No eating out: 1-3 times/week during the past year weight has: remained stable what type of physical activity do you participate in: none faustino/restorationism: None seatbelt use: always do you feel safe at home: Yes 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 Elective abortions Hx Para 0 Spontaneous abortions 2 Hx # Term Pregnancies Ectopic pregnancies Hx # Pregnancies Multiple births # of living children 0 Visit Details Expected Delivery Route/Plan Labor Preferences- CB/BF classes: [] labor support person: [] labor intervention preferences: [] pain management options preferred: [] cut cord/dad catch: [] : [] PP control planned: [] discussed possible routes of delivery and associated risks: [] special requests: [] Plans Covid status: [] Flu vaccine: declin Tdap vaccine: given Rhogam:na LARC form signed: declined movement and labor precautions reviewed. Problem list reviewed and updated with the most current plan of care details and appropriate orders placed. Relevant counseling for the gestational age provided. Continue routine care and follow up unless otherwise noted in visit notes/problem list details OB Flowsheet Initial Weight: 253 lb Date -?-?-?-?-?-?-?-?-?-?-?-?- EGA Weight BP Urine Prot -?-?-?-?-?-?-?-?-?-?-?-?- Glucose FHR FuHt Pres Dilation -?-?-?-?-?-?-?-?-?-?-?-?- Effaced St Visit Note 02/08/24 -?-?-?-?-?-?-?-?--?-?-?-?- 8w 3d 253 lb (+0 oz) 121/72 -?-?-?-?-?-?-?-?-?-?-?-?- 175 -?-?-?-?-?-?-?-?-?-?-?-?- KW- CRL cons wit h dates. NIPT with gender at next appt. 03/10/24 -?-?-?-?-?-?-?-?-?-?-?-?- 12w 6d 247 lb 6 oz (-5 lb 10 oz) 122/69 Negative -?-?-?-?-?-?-?-?-?-?-?--?- Negative 140 -?-?-?-?-?-?-?-?-?-?-?-?- JV- hand held de vice used to reassure patient. NIPT ordered. JV- hand held device used to reassure patient. NIPT ordered. pt on metformin for PCOS. She thinks she also has had insulin resistance in the past. She has been on this since september so A1c will likely not be accurate to know if has pre- existing DM. she will check glucose levels now and if decides to stop it, will check levels fasting and 2 hr pp. 04/07/24 -?-?-?-?-?-?-?-?-?-?-?-?- 16w 6d 243 lb (-10 lb) 126/84 Negative -?-?-?-?-?-?-?-?-?-?-?-?- Negative 156 -?-?-?-?-?-?-?-?-?-?-?-?- JV- fasting leve ls in 80's ,2 hr pp 110's. plan to stop metformin the week of her glucola and if normal glucola, stop metformin. JV- no lof, vaginal bleeding, or dec fm. nst reactive. GBS collected. JV- glucose log is normal. p t will stop metformin and do glucola at 26-28 weeks. 05/05/24 -?-?-?-?-?-?-?-?-?-?-?-?- 20w 6d 243 lb (-10 lb) 113/76 Negative -?-?-?-?-?-?-?-?-?-?-?-?- Negative 150 -?-?-?-?-?-?-?-?-?-?-?-?- SM- no vb lof go o dfm nor euglar ctx 06/02/24 -?-?-?-?-?-?-?-?-?-?-?-?- 24w 6d 243 lb 2 oz (-9 lb 14 oz) 133/83 Negative -?-?-?-?-?-?-?-?-?-?-?-?- Negative 145 25 -?-?-?-?-?-?-?-?-?-?-?-?- KW- no vb/lof/ct x. good fm. LARC discussed and unsure. BS reviewed and WNL 06/30/24 -?-?-?-?-?-?-?-?-?-?-?-?- 28w 6d 243 lb 8 oz (-9 lb 8 oz) 132/80 Negative -?-?-?-?-?-?-?-?-?-?-?-?- Negative 138 30 -?-?-?-?-?-?-?-?-?-?-?-?- JV- tdap done to day. no lof, vaginal bleeding, or dec fm. has nausea again and asking for zofran refill. 3rd tri labs today 07/14/24 -?-?-?-?-?-?-?-?-?-?-?-?- 30w 6d 246 lb 8 oz (-6 lb 8 oz) 124/78 Negative -?-?-?-?-?-?-?-?-?-?-?-?- Negative 157 31 -?-?-?-?-?-?-?-?-?-?-?-?- LC- no vb/ctx/lo f. good fm. no concerns 07/28/24 -?-?-?-?-?-?-?-?-?-?-?-?- 32w 6d 250 lb (-3 lb) 131/82 -?-?-?-?-?-?-?-?-?-?-?-?- 145 33 -?-?-?-?-?-?-?-?-?-?-?-?- KW- no vb/lof/ct x. good fm. Growth US ordered-scheduled for NSTs at 34 weeks. 08/11/24 -?-?-?-?-?-?-?-?-?-?-?-?- 34w 6d 251 lb 2 oz (-1 lb 14 oz) 118/81 Negative -?-?-?-?-?-?-?-?-?-?-?-?- Negative 140 34 -?-?-?-?-?-?-?-?-?-?-?-?- SM- no vb lof go od fm no reuglar ctx 08/18/24 -?-?-?-?-?-?-?-?-?-?-?-?- 35w 6d 252 lb (-16 oz) 136/82 -?-?-?-?-?-?-?-?-?-?-?-?- 130 35 -?-?-?-?-?-?-?-?-?-?-?-?- SM- no vb lof go od fm no reuglar ctx, being treated for a cold 08/25/24 -?-?-?-?-?-?-?-?-?-?-?-?- 36w 6d 256 lb 4 oz (+3 lb 4 oz) 129/78 Negative -?-?-?-?-?-?-?-?-?-?-?-?- Negative 135 37 Cephalic 1 .5 -?-?-?-?-?-?-?-?-?-?-?-?- 70 -2 KW- no vb/ lof/ctx. good fm. NST today. GBS today. 09/01/24 -?-?-?-?-?-?-?-?-?-?-?-?- 37w 6d 259 lb 6 oz (+6 lb 6 oz) 127/73 Negative -?-?-?-?-?-?-?-?-?-?-?-?- Negative 145 Cephalic 1.5 -?-?-?-?-?-?-?-?-?-?-?-?- 70 -2 JV- 2 vari able decels on NST today. sending to L&D for a bpp. 09/08/24 -?-?-?-?-?-?-?-?-?-?-?-?- 38w 6d 259 lb 2 oz (+6 lb 2 oz) 130/84 Negative -?-?-?-?-?-?-?-?-?-?-?-?- Negative 140 38 Cephalic -?-?-?-?-?-?-?-?-?-?-?-?- JV- pt had anoth er broken up variable deceleration. sending back to L&D. ROS Constitutional Constitutional: Denies change in weight, fatigue, fever(s), headache(s), poor appetite or weakness Eyes Eyes: Denies blurry vision, change in vision, seeing flashes or spots in vision ENT HEENT: Denies dizziness, headache(s), loss taste/smell or sore throat Cardiovascular Cardiovascular: Denies chest pain, dizziness, dyspnea, irregular heart rhythm, leg edema, palpitations, rapid heart rate or vomiting Respiratory/Chest Respiratory/Chest: Denies chest tightness, cough, dyspnea or breast pain Gastrointestinal Gastrointestinal: Denies abdominal pain, anorexia, constipation, cramping, diarrhea, hemorrhoids, vomiting or weight changes Genitourinary Genitourinary: Denies dysuria, flank pain, genital lesions, genital pain, urinary frequency or urinary urgency Musculoskeletal Musculoskeletal: Denies back pain, difficulty walking, joint pain, limited range of motion, muscle cramps or numbness Integumentary Integumentary: Denies lesions or unusual bruising Neurologic Neurologic: Denies abnormal movements, abnormal speech, dizziness, numbness, seizure-like activity or syncope Psychiatric Psychiatric: Denies anxiety, behavioral changes, change in appetite, change in libido, cognitive impairment, confusion, depression, difficulty concentrating, hallucinations or suicidal thoughts Endocrine Endocrinology: Denies excessive sweating, polydipsia or polyuria Hematologic/Lymphatic Hematologic/Lymphatic: Denies easy bleeding, easy bruising or lymphadenopathy Allergic/Immunologic Allergic/Immunologic: Denies itchy eyes, lip swelling, seasonal rhinorrhea, rhinitis, throat swelling, tongue swelling, eczemia, wheezing or asthma Vital Signs Vital Signs Vital Signs: 09/08/24 14:58 09/08/24 14:58 09/08/24 14:59 Temperature Temperature Source Temporal Pulse Rate 85 Respiratory Rate Blood Pressure 146/77 H BP Systolic 146 BP Diastolic 77 09/08/24 14:59 09/08/24 14:59 Temperature 97.5 F L Temperature Source Pulse Rate Respiratory Rate 16 Blood Pressure BP Systolic BP Diastolic Weight Weight: 258 lb 2.581 oz Body Mass Index (BMI) 43.0 Physical Exam Const alert, oriented x3, no apparent distress and healthy appearing General Appearance: cooperative; Negative for anxious HEENT normocephalic Face and Sinus: normal facial exam Eyes EOMs intact bilaterally and no scleral icterus General Eye: normal appearance of both eyes Neck full ROM and supple Lymph Lymphatic: no lymphadenopathy noted Chest Chest: abnormal inspection of the chest Resp normal respiratory effort Effort and Inspection: able to speak in complete sentences Cardio regular rate GI soft to palpation and non-tender Inspection: gravid Palpation: soft; Negative for tender external exam normal OB / External & Speculum: other cx is 1.5/70/-2 Back/Spine no CVA tenderness Extremity normal to inspection, full ROM and no clubbing, cyanosis or edema General Extremity: Negative for calf tenderness or edema Skin Lesions: no lesions Rashes: no rashes Psych mental status grossly normal Labs Labs Labs: Blood Type O POSITIVE Antibody Screen NEGATIVE Hct 38.8 % (37-47) Hgb 13.4 g/dL (12.0-15.0) Obstetrics Ultrasound Syphilis Total Ab Non-reactive Rubella IgG Antibody Reactive (Nonreactive) Hep Bs Antigen Non-Reactive (Nonreactive) Hepatitis C Antibody Non-Reactive (Nonreactive) Chlamydia DNA (NATALIO) Negative (Negative) N.gonorrhoeae DNA (NATALIO) Negative (Negative) HIV 1&2 Antibody Non-Reactive (Nonreactive) Glucose 1 Hr 50 gm 113 mg/dL (70-140) Assessment & Plan (1) Variable deceleration: COMMENT: 01/28 BPP off for breathing. normal JAEL. active fetus. reactive NST. (2) Obesity affecting : COMMENT: A1C- normal, weekly nst at 34 weeks, 36 week growth (3) History of miscarriage, currently : COMMENT: 2 miscarriages 2022 (4) PCOS (polycystic ovarian syndrome): COMMENT: on metformin for this, stopped prior to 20 weeks (5) Supervision of high-risk : COMMENT: PRR,, NATALIA 09/16/24 boy Ga Sudarshan (6) : QUALIFIERS: Weeks of gestation: 38 weeks Qualified Code(s): Z3A.38 - 38 weeks gestation of COMMENT: GBS neg, nl anatomy-. discussed genetic & carrier testing PLAN: Plan Patient presents IOL, plan management for with cytotec tonight for at least one dose to soften the cervix. will then transition to pit/garcia/arom prn. Pain management: plans epidural. GBS negative. Management of any complications: none I have reviewed the [facility] and made any clinically relevant updates.
[2024-09-08] MEDS: 0.9% Saline Lock 10 ML Syringe IV ×2 (17:55→23:36)
[2024-09-08 18:11] LABS: Absolute Lymphocyte Count 1.64 X10^3/uL (0.83-4.51); Absolute Neutrophil Count 6.6 X10^3/uL (2.0-7.7); Basophil# 0.05 X10^3/uL; Basophil% 0.5 % (0-1); Eosinophil# 0.09 X10^3/uL; Hematocrit 37.9 % (37-47); Lymphocyte # 1.64 X10^3/ul (0.83-4.51); Lymphocyte % 17.9 % (19-41); Mean Corp Hgb Conc 34.3 g/dL (32-36); Mean Corpuscular Hgb 28.3 pg (27.0-32.0); Mean Corpuscular Volume 82.4 fL (81-99); Mean Platelet Vol. 9.4 fl (6.2-12.0); Monocyte# 0.69 X10^3/uL; Monocyte% 7.5 % (0-10); NRBC Flagged by Analyzer 0 % (0-5); Neutrophil # 6.58 X10^3/uL (2.7-7.7); Neutrophil % 71.9 % (47-70); Platelet Count 319 K/mm3 (150-450); RBC Distribution Width SD 38.5 fl (35.1-43.9); White Blood Count 9.2 K/mm3 (4.4-11.0)
[2024-09-08] MEDS: miSOPROStol 25 MCG TABLET VAGINAL ×2 (18:44→22:45)
[2024-09-08 18:46] LABS: Syphilis Antibodies Non-reactive
[2024-09-08] MEDS: Ondansetron 4 MG/2 ML Vial IV (23:36)
[2024-09-09] VITALS (57 sets, daily range): BP systolic 99–161; BP diastolic 50–77; PULSE 65–106; RESP 16–18; TEMP 36.1–37.1; O2SAT 90–100
[2024-09-09] MEDS: miSOPROStol 25 MCG TABLET VAGINAL (02:45)
--- NOTE | 2024-09-09 04:42 | PN_ITS ---
Progress Note patient is feeling contractions. She has gone through 2 doses of cytotec and making cervical change from 1 and thick to 2 and 80% per the nurse current tracing: FHT: Moderate variability reactive occasional variable decelerations, overall category I tracing [place]: Contractions not picking up well cx 2-3/80/-1. garcia bulb in and inflated with 50cc ns. A/P: IOL for decelerations. Currently cat 1 tracing. patient became nauseated with the garcia placement. epidural soon. still has 2 more hours of cytotec before we may transition to pitocin, if needed.
[2024-09-09] MEDS: 0.9% Saline Lock 10 ML Syringe IV (04:43)
[2024-09-09] MEDS: Ondansetron 4 MG/2 ML Vial IV (04:44)
[2024-09-09] MEDS: Lactated Ringers 1,000 ML 999 ML IV ×2 (04:50→08:49)
[2024-09-09] MEDS: fentaNYL-bupivacaine (epidural) 100 ML BAG EPIDURAL ×2 (05:29→09:52)
[2024-09-09] MEDS: Lactated Ringers 1,000 ML 200 ML IV ×2 (05:50→12:29)
[2024-09-09] MEDS: Oxytocin 10 UNITS/ML Vial IM (13:32)
[2024-09-09] MEDS: Oxytocin 15 Units/NS 250ml 15 UNITS/250 ML IV.SOLN 83 UNITS IV (13:32)
--- NOTE | 2024-09-09 13:45 | EX.PCM.OBVAG ---
Assessment & Plan (1) Variable deceleration: COMMENT: 01/28 BPP off for breathing. normal JAEL. active fetus. reactive NST. (2) Obesity affecting : COMMENT: A1C- normal, weekly nst at 34 weeks, 36 week growth (3) History of miscarriage, currently : COMMENT: 2 miscarriages 2022 (4) : QUALIFIERS: Weeks of gestation: 38 weeks Qualified Code(s): Z3A.38 - 38 weeks gestation of COMMENT: GBS neg, nl anatomy-. discussed genetic & carrier testing (5) Supervision of high-risk : COMMENT: PRR,, NATALIA 09/16/24 boy Ga Sudarshan (6) PCOS (polycystic ovarian syndrome): COMMENT: on metformin for this, stopped prior to 20 weeks Maternal Data Information NATALIA Calculator Estimated Delivery Date Method Current WG Current Estimate 09/16/24 LMP (Certain) 39w 0d Final NATALIA: 09/16/24 Gestational age: 39 weeks 0d Vaginal Delivery Maternal Presentation Maternal Presentation: Medically Indicated Induction Type of Induction: Pitocin, Giraldo Bulb, Amniotomy and Cytotec Medical Reason for Induction: Other ( decelerations during testing ) Vaginal Delivery Information Procedure Performed: Spontaneous Vaginal Delivery Surgeon/Practitioner: Tiesha Vera Date of Procedure: 09/09/24 Pre-Procedure Diagnosis: 24 y/o @ 39 weeks, decelerations during testing Post-Procedure Diagnosis: 24 y/o @ 39 weeks, decelerations during testing Type of anesthesia: Epidural Estimated Blood Loss: 200cc Time of Delivery: 13:27 Findings Description of procedure: Patient began pushing and delivered the head in the HOOD presentation. The head was delivered atraumatically and a loose nuchal cord ?1 was identified and easily reduced over the 's head. The anterior and posterior shoulders delivered without complication followed by the rest of the and the was placed on the maternal abdomen. Delayed cord clamping was employed for approximately 60 seconds. Cord was clamped and cut and gentle traction was applied to the cord and the placenta delivered spontaneously immediately following it was noted to be intact with three-vessel cord. The perineum and vagina were inspected and noted to have a 1st degree perineal laceration. This was repaired with a 2-0 vicryl. EBL was 200. Patient and tolerated delivery well. Procedure findings: viable male infant Ga Presentation: Vertex Amniotic Membrane Rupture Type: Artificial Amniotic Fluid Description: Clear Placental Delivery Description: Spontaneous Placenta Disposition: [facility] Cord Vessel Description: 3 Vessels Cord Entanglement: Around neck x 1, loose A Gender: Male (1 minute): 8 (5 minute): 9 Delayed Cord Clamping: Yes Internal Audit Consultant plant changer: No Post Vaginal Deli Medications given after delivery: IV Pitocin and IM Pitocin Episiotomy Description: None Laceration: 1st degree Multi Select Codes Urinary/Genital Urinary/Genital CPT Codes: 40838 Vaginal Delivery [facility]
--- NOTE | 2024-09-09 13:54 | DCINST_ITS ---
Discharge Instructions Diet Discharge Diet: No restrictions DC O2, CPAP, BIPAP needs Home O2 Discharge instructions: No Dressing / Incision Discharge Activity: Return to Normal Activity, May Not Drive (while taking narcotic pain medications.) and May Shower May resume sexual activity in: 4-6 weeks Dressing / Incision Call your doctor if your incision/area has: Continuous Slow Oozing, Sudden Increased Bleeding, Increased Pain/ Swelling, Increased Redness and Foul Smelling Discharge Follow Up Care Please Follow Up With: Tiesha Vera DO When: Call [phone] to make an appointment with your doctor in 6 weeks. If you had elevated blood pressure or 4th degree laceration, you will need to be seen in 2 weeks. Test Results: Test results from this visit will be discussed in further detail at your follow- up appointment, if applicable. Discharge Plan Admission Admit Date/Time: 09/08/24 17:11 Attending Provider: Tiesha Vera Primary Care Provider: WEN DYKES DO Discharge Orders/Prescriptions Prescriptions: No Action PNV-DHA 27 mg iron-1 mg -300 mg capsule 1 cap PO DAILY ondansetron 4 mg tablet,disintegrating 4 mg PO Q8H PRN (Reason: nausea and vomiting) Qty: 30 3RF Referrals / Follow Up: WEN DYKES DO [Other]
[2024-09-09] MEDS: Acetaminophen 500 MG Tablet 1000 MG PO (18:13)
[2024-09-09] MEDS: Senna/Docusate Sodium 1 Tablet PO (18:13)
[2024-09-10] VITALS (10 sets, daily range): BP systolic 105–138; BP diastolic 58–76; PULSE 73–93; RESP 16–18; TEMP 36.2–36.6; O2SAT 96–99
[2024-09-10] MEDS: Ibuprofen 600 MG Tablet PO ×3 (00:05→23:50)
[2024-09-10] MEDS: Acetaminophen 500 MG Tablet 1000 MG PO (08:03)
--- NOTE | 2024-09-10 10:16 | PCM.PN.OB ---
Subjective Subjective Patient doing well without complaints. Tolerating PO. Ambulating and voiding without difficulty. Feeding well. Denies chest pain, shortness of breath, calf pain/swelling, fevers, chills, lightheadedness. Objective Data Objective Data Vital Signs: Vital Signs Temp Pulse Resp BP Pulse Ox O2 Del Method 97.6 F L 78 16 129/76 H 98 Room Air 09/10/24 07:57 09/10/24 07:57 09/10/24 07:57 09/10/24 07:57 09/10/24 07:57 09/10/24 07:57 Oxygen Delivery Method Room Air Weight: 258 lb 2.581 oz Body Mass Index (BMI) 43.0 Intake & Output: Intake and Output for Last 24 Hours 09/08/24 09/09/24 09/10/24 23:59 23:59 23:59 Intake Total 3459.02 / 3459.02 Output Total 2300 / 2300 Balance 1159.02 / 1159.02 Lab / Micro Data 09/08/24 17:55 ROS Constitutional Constitutional: Denies chills, fatigue, fever(s), poor appetite or weakness Eyes Eyes: Denies blurry vision, change in vision, seeing flashes or spots in vision ENT HEENT: Denies dizziness, headache(s), loss taste/smell or sore throat Cardiovascular Cardiovascular: Denies chest pain, dizziness, dyspnea, irregular heart rhythm, palpitations or rapid heart rate Respiratory/Chest Respiratory/Chest: Denies chest tightness, cough, dyspnea or breast pain Gastrointestinal Gastrointestinal: Denies abdominal pain, constipation or vomiting Genitourinary Genitourinary: Denies dysuria or flank pain Musculoskeletal Musculoskeletal: Denies difficulty walking, joint pain, limited range of motion or numbness Neurologic Neurologic: Denies abnormal movements, abnormal speech, dizziness, numbness, seizure-like activity or syncope Psychiatric Psychiatric: Denies anxiety, behavioral changes, change in appetite, confusion, depression or suicidal thoughts Physical Exam Const alert, oriented x3 and no apparent distress General Appearance: cooperative and comfortable Resp normal respiratory effort Cardio regular rate GI normal to inspection, nondistended, normoactive bowel sounds GI Narrative: uterus is firm below umbilicus Palpation: soft Back/Spine no CVA tenderness and thoraco-lumbar ROM normal Extremity normal to inspection, no clubbing, cyanosis or edema, no calf tenderness and no pedal edema Psych mental status grossly normal, thought process normal, cooperative, affect normal, speech normal, activity/motor behavior normal, denies homicidal ideation and denies suicidal ideation Assessment & Plan (1) Vaginal delivery: COMMENT: 09/09/23- JEET PLAN: Plan s/p PPD # 1 1. routine post delivery care 2. breast feeding- support given 3. rh positive 4. rubella immune
[2024-09-10] MEDS: Senna/Docusate Sodium 1 Tablet PO (20:43)
[2024-09-11] VITALS (9 sets, daily range): BP systolic 131–139; BP diastolic 63–76; PULSE 79–99; RESP 16; TEMP 36.4–36.7; O2SAT 98–100
--- NOTE | 2024-09-11 08:04 | PN.OBGYN_ITS ---
Subjective Subjective Patient doing well without complaints. Tolerating PO. Ambulating and voiding without difficulty. Feeding well. Denies chest pain, shortness of breath, calf pain/swelling, fevers, chills, lightheadedness. Objective Data Objective Data Vital Signs: Vital Signs Temp Pulse Resp BP Pulse Ox O2 Del Method 98.1 F 99 16 132/74 H 98 Room Air 09/11/24 02:00 09/11/24 08:02 09/11/24 02:00 09/11/24 08:02 09/11/24 08:02 09/11/24 02:00 Oxygen Delivery Method Room Air Weight: 258 lb 2.581 oz Body Mass Index (BMI) 43.0 Intake & Output: Intake and Output for Last 24 Hours 09/09/24 09/10/24 09/11/24 23:59 23:59 23:59 Intake Total 3459.02 / 3459.02 Output Total 2300 / 2300 Balance 1159.02 / 1159.02 Lab / Micro Data 09/08/24 17:55 ROS Constitutional Constitutional: Reports systems reviewed and no addt'l complaints, except as documented; Denies anorexia or headache(s) Cardiovascular Cardiovascular: Reports systems reviewed and no addt'l complaints, except as documented; Denies dizziness, dyspnea, nausea or tachypnea Respiratory/Chest Respiratory/Chest: Reports systems reviewed and no addt'l complaints, except as documented; Denies cough, dyspnea, shortness of breath at rest or tachypnea Gastrointestinal Gastrointestinal: Reports systems reviewed and no addt'l complaints, except as documented; Denies abdominal pain, constipation or nausea Genitourinary Genitourinary: Reports systems reviewed and no addt'l complaints, except as documented; Denies burning urination, difficulty urinating, dysuria, urinary frequency or urinary incontinence Musculoskeletal Musculoskeletal: Reports systems reviewed and no addt'l complaints, except as documented Integumentary Integumentary: Reports systems reviewed and no addt'l complaints, except as documented Neurologic Neurologic: Reports systems reviewed and no addt'l complaints, except as documented; Denies abnormal speech, dizziness or headache(s) Psychiatric Psychiatric: Reports systems reviewed and no addt'l complaints, except as documented Endocrine Endocrinology: Reports systems reviewed and no addt'l complaints, except as documented Hematologic/Lymphatic Hematologic/Lymphatic: Reports systems reviewed and no addt'l complaints, except as documented Physical Exam Const alert, oriented x3 and no apparent distress Neck full ROM Resp normal respiratory effort, normal air movement and no retractions Effort and Inspection: able to speak in complete sentences and symmetric chest movement GI soft to palpation Bladder / Kidney Exam: bladder normal to palpation Uterus Palpation: uterus fundus firm Extremity normal to inspection and full ROM Psych mental status grossly normal, thought process normal and cooperative Assessment & Plan (1) Vaginal delivery: COMMENT: 09/09/23- JEET PLAN: s/p PPD # 2 1. routine post delivery care 2. breast feeding- support given 3. rh positive 4. rubella immune 5. discharge home (2) Obesity affecting : COMMENT: A1C- normal, weekly nst at 34 weeks, 36 week growth (3) History of miscarriage, currently : COMMENT: 2 miscarriages 2022 (4) Supervision of high-risk : COMMENT: PRR,, NATALIA 09/16/24 boy Ga Sudarshan (5) : QUALIFIERS: Weeks of gestation: 38 weeks Qualified Code(s): Z 3A.38 - 38 weeks gestation of COMMENT: GBS neg, nl anatomy-. discussed genetic & carrier testing (6) PCOS (polycystic ovarian syndrome): COMMENT: on metformin for this, stopped prior to 20 weeks Charges/Coding Multi Select Codes Urinary/Genital Urinary/Genital CPT Codes: No Charge
[2024-09-11] MEDS: Ibuprofen 600 MG Tablet PO (10:32)
== END 2024-09-11 12:40 | disposition home or self-care (01) | DRG 807 ==
LOC: WPOUT 17:14 → WP 17:14
PROVIDERS: Admitting Provider Obstetrics & Gynecology; Referring Provider Obstetrics & Gynecology; Visit Provider Obstetrics & Gynecology
DX: O36.8330 Maternal care for abnormalities of the fetal heart rate or rhythm, third trimester, not applicable or unspecified (principal); Z37.0 Single live birth; E66.9 Obesity, unspecified; E28.2 Polycystic ovarian syndrome; O70.0 First degree perineal laceration during delivery; O99.214 Obesity complicating childbirth; O69.81X0 Labor and delivery complicated by cord around neck, without compression, not applicable or unspecified; Z3A.39 39 weeks gestation of pregnancy; O99.284 Endocrine, nutritional and metabolic diseases complicating childbirth; Z87.891 Personal history of nicotine dependence
CPT/HCPCS: 59025; 59050; 76819; 85025; 86780; 86850; 86900; 86901; 99221; A4216; G0378; J2405